=== PATIENT | female | born 1935 | race Caucasian/White ===

== ENCOUNTER → 2017-01-01 | Outpatient (CLI) | payer OTHER ==
[~2017-01-01] MED LIST: ALENDRONATE SODI5 MG; ALLOPURINOL300 MG; ANEXSIA 7.5/3251 TA1 PO; ANTIVERT PO; ARIMIDEX1 MG PO; ASPIRIN PO; ASPIRIN81 M1 PO; B-COMPLEX W/1 TAB.S1 PO; BUMEX; CALCIUM1 TAB.CHEW; COUMADIN; COUMADIN PO; COUMADIN4 MG PO; COUMADIN6 MG PO; COZAAR; DIGOXIN125 MCG; FISH OIL 1,0001 CAP PO; FISH OIL300 MG; GLYBURIDE PO; KCL PO; LANOXIN PO; LASIX PO; LOTREL 5/10 MG1 CAP PO; METFORMIN PO; NABUMETONE PO; NEURONTIN PO; PAMELOR PO; PATIENT'S PHARMACY; POTASSIUM CHLO10 ME1 PO; PREDNISONE; PROAIR HFA8.5 GM; PROTONIX PO; TOPAMAX PO; TRADJENTA5 MG; TREXALL7.5 MG; VALIUM2 MG PO; VICODIN 5/500 T1 TAB PO; VITAMIN B; VITAMIN B COMPLEX; VITAMIN D 22000 UNIT PO; VITAMIN D400 UNI2; VYTORIN; VYTORIN 10/40 T1 TAB PO; ZANAFLEX PO; ZYLOPRIM PO; [UNRECOGNIZED DRUG - OTHER] PO
--- NOTE | ~2017-01-01 | MY27 ---
[facility] A Service of [facility] RADIOLOGY TEXT RESULTS PATIENT: LISA MENDOZA LOCATION: [facility] : 35 UNIT #: [id number] AGE: [address]: Sayda Thomas MD SEX: F ORDER DR: [id number] [facility] [address] [address] [id number] O MR#: [id number] Acc #: [id number] NAME: LISA MENDOZA. : 1935 SEX: F STUDY DATE/TIME: 01/01/2017 15:51 UNIT: [facility] ROOM: STUDY DESCRIPTION: MY ASHLEY SCREEN W/ CAD UNI LT Attending Physician: Sayda Thomas M.D. Ordering Physician: Sayda Thomas M.D. Primary Care Physician: Sayda Thomas M.D. MEDICAL IMAGING REPORT This report is preliminary unless electronic signature is present EXAM Left breast digital screening mammogram CAD, 01/01/2017. HISTORY 81-year-old female with right breast cancer status post right mastectomy December 2007. Family history of breast cancer in her mother at the age of 74 and a sister at the age of 82. No current complaints. COMPARISON Left breast screening mammogram 09/05/2015, 09/20/2014. FINDINGS CC and MLO views were obtained of the left breast utilizing digital technique and reviewed with an FDA-approved CAD device. Scattered fibroglandular densities are present within the left breast. Round markers were placed denoting skin lesions. Pacemaker device projects over the left axilla on the MLO view. No new or suspicious nodule, architectural distortion, or cluster of microcalcification is seen. Benign calcifications are seen throughout the left breast. IMPRESSION Benign findings. No features suspicious for malignancy in the left breast. Right mastectomy. Routine left breast screening mammogram recommended in 1 year. Patients over the age of 40 are entered into a reminder system with target due date for the next mammogram. A result letter will also be sent to the patient. BIRADS: 2 Benign finding. [facility] A Service [facility] RADIOLOGY TEXT RESULTS PATIENT: LISA MENDOZA LOCATION: [facility] : 35 UNIT #: [id number] AGE: [address]: Sayda Thomas MD SEX: F ORDER DR: Dictated by... Selam Peña M.D. THIS IS AN ELECTRONICALLY VERIFIED REPORT Selam Peña M.D. at 01/06/2017 3:27 PM HELDER/jenna TD: 01/02/2017 13:49 JOB #: [id number] MEDICAL IMAGING REPORT Page 1 of 1 COPY
== END | disposition home or self-care (01) ==
LOC: CWCC 08:15
DX: Z12.31 Encounter for screening mammogram for malignant neoplasm of breast (principal); Z85.3 Personal history of malignant neoplasm of breast; Z90.11 Acquired absence of right breast and nipple
CPT/HCPCS: G0202